=== PATIENT | male | born 1940 | race Caucasian/White ===

== ENCOUNTER 2020-11-28 17:00 | Inpatient (IN) ==
[2020-11-28] MEDS ORDERED: Norepinephrine 16MCG/ML IVPRE 4,000 MCG/250 ML BAG IV ONE (17:06)
[2020-11-28] MEDS ORDERED: Heparin - STEMI 5,000 UNITS/ML 1 ml VIAL IV ONE ×2 (17:08→17:14)
[2020-11-28] MEDS ORDERED: Heparin 1,000 UNIT/ML 10 ml (10,000 UNITS) CATHLAB/DIALYSIS ONE (17:09)
[2020-11-28] MEDS ORDERED: Heparin 2 UNITS/ML 1000 mls 2,000 ML IV ONE (17:09)
[2020-11-28] MEDS ORDERED: nitroGLYCERIN DRIP 25,000 MCG/250 ML BTL ONE (17:09)
[2020-11-28] MEDS ORDERED: Lidocaine 1% VIAL 10 MG/ML VIAL ONE (17:09)
[2020-11-28] MEDS ORDERED: VERAPAMIL 2.5 MG/ML 2 ML VIAL ** 5 mg/2 ml ONE (17:09)
[2020-11-28] MEDS ORDERED: Midazolam 5 mg/5 ml VIAL 1 mg/ml 5 ml VIAL (5 mg) ONE (17:10)
[2020-11-28] MEDS ORDERED: Iohexol 350 (CONTRAST) 200 ML MDV IV ONE ×2 (17:10→17:45)
[2020-11-28] MEDS ORDERED: fentaNYL 100 mcg/2 ml 50 MCG/ML VIAL ONE (17:10)
[2020-11-28] MEDS ORDERED: Atropine 1 MG/ML INJ 1 ML VIAL IV PUSH ONE ×2 (17:14→17:15)
[2020-11-28 17:16] LABS: Hematocrit 45 % (42-52); Hemoglobin 15.7 g/dL (14.0-18.0); Mean Corpuscular HGB Conc 35 g/dL (31-36); Mean Corpuscular Hemoglobin 30 pg (27-31); Mean Corpuscular Volume 86 fL (80-94); Platelet Count 266 10^3/uL (150-450); Red Blood Count 5.23 10^6 /uL (4.18-5.48); Red Cell Distribution Width 14 % (10-15); White Blood Count 9.8 10^3/uL (3.5-10.8)
[2020-11-28 17:21] LABS: INR 1.12 (0.86-1.15)
[2020-11-28 17:36] LABS: Albumin 4.1 g/dL (3.2-5.2); Albumin/Globulin Ratio 1.6 (1-3); Calcium 9.5 mg/dL (8.6-10.3); Globulin 2.6 g/dL (2-4); Magnesium 2.1 mg/dL (1.9-2.7); Potassium 3.5 mmol/L (3.5-5.0); Total Bilirubin 0.8 mg/dL (0.2-1.0); Total Protein 6.7 g/dL (6.4-8.9)
[2020-11-28 17:37] LABS: Troponin I 0.01 ng/mL (<0.03)
[2020-11-28 17:40] LABS: Rapid COVID-19 Molecular Undetected (Undetected)
[2020-11-28] MEDS ORDERED: Bivalirudin 250 MG VIAL ONE (18:00)
[2020-11-28] MEDS ORDERED: Ondansetron 4 mg VIAL 2 MG/ML 2 ml VIAL IV PRN (21:08)
[2020-11-28 21:12] LABS: Creatine Kinase 1849 U/L (10-223)
[2020-11-28 21:14] LABS: CKMB ng/mL 216.8 ng/mL (0.6-6.3)
[2020-11-28 21:19] LABS: Troponin I 54.99 ng/mL (<0.03)
[2020-11-29] MEDS: KCL 20 MEQ/100 ML IVPREMIX 20 MEQ/100 ML BAG IV SCH ×2 (02:14→04:15)
[2020-11-29] MEDS ORDERED: Potassium Chloride LIQUID 20 MEQ/15 ML LIQUID PO ONE (03:21)
[2020-11-29 03:29] LABS: Creatine Kinase 1708 U/L (10-223)
[2020-11-29 03:36] LABS: CKMB ng/mL 209.6 ng/mL (0.6-6.3)
[2020-11-29 03:43] LABS: Troponin I > 79.00 ng/mL (<0.03)
[2020-11-29 06:54] LABS: ABS Basophils 0.1 10^3/ul (0-0.2); ABS Monocytes 0.7 10^3/ul (0-0.8); ABS Neutrophils 10.1 10^3/ul (1.5-7.7); Eosinophil % 0.1 %; Hematocrit 42 % (42-52); Hemoglobin 14.6 g/dL (14.0-18.0); Lymphocyte % 8.3 %; Mean Corpuscular HGB Conc 35 g/dL (31-36); Mean Corpuscular Hemoglobin 30 pg (27-31); Mean Corpuscular Volume 86 fL (80-94); Mean Platelet Volume 8.3 fL (7.4-10.4); Platelet Count 218 10^3/uL (150-450); Red Cell Distribution Width 14 % (10-15); White Blood Count 11.9 10^3/uL (3.5-10.8)
[2020-11-29 07:11] LABS: ALT 104 U/L (7-52); AST 206 U/L (13-39); Albumin 3.8 g/dL (3.2-5.2); Albumin/Globulin Ratio 1.6 (1-3); Alkaline Phosphatase 89 U/L (35-149); Anion Gap 7 mmol/L (2-11); Blood Urea Nitrogen 19 mg/dL (6-24); CO2 Carbon Dioxide 24 mmol/L (22-32); Calcium 8.8 mg/dL (8.6-10.3); Chloride 108 mmol/L (101-111); Cholesterol 145 mg/dL; EGFR African American 70.4 (>60); EGFR Non-African American 58.1 (>60); Globulin 2.4 g/dL (2-4); Glucose 127 mg/dL (70-100); HDL Cholesterol 33.7 mg/dL; LDL Cholesterol 88 mg/dL; Sodium 139 mmol/L (135-145); Total Protein 6.2 g/dL (6.4-8.9); Triglycerides 116 mg/dL
[2020-11-29 09:16] LABS: Creatine Kinase 1394 U/L (10-223)
[2020-11-29 09:17] LABS: CKMB ng/mL 175.1 ng/mL (0.6-6.3)
[2020-11-29 09:30] LABS: Troponin I > 79.00 ng/mL (<0.03)
[2020-11-29] MEDS ORDERED: Enoxaparin 40 MG/0.4 ML SYR SUBCUT SCH (10:00)
[2020-11-30 04:44] LABS: ABS Basophils 0.1 10^3/ul (0-0.2); ABS Eosinophils 0.1 10^3/ul (0-0.6); ABS Lymphocytes 1.2 10^3/ul (1.0-4.8); ABS Monocytes 0.9 10^3/ul (0-0.8); ABS Neutrophils 8.2 10^3/ul (1.5-7.7); Hematocrit 43 % (42-52); Hemoglobin 14.6 g/dL (14.0-18.0); Lymphocyte % 11.7 %; Mean Corpuscular HGB Conc 34 g/dL (31-36); Mean Corpuscular Hemoglobin 30 pg (27-31); Mean Corpuscular Volume 88 fL (80-94); Mean Platelet Volume 8.1 fL (7.4-10.4); Platelet Count 178 10^3/uL (150-450); Red Blood Count 4.88 10^6 /uL (4.18-5.48); Red Cell Distribution Width 14 % (10-15); White Blood Count 10.5 10^3/uL (3.5-10.8)
[2020-11-30 04:52] LABS: INR 1.4 (0.86-1.15)
[2020-11-30 05:01] LABS: Albumin 3.6 g/dL (3.2-5.2); Albumin/Globulin Ratio 1.5 (1-3); Calcium 8.6 mg/dL (8.6-10.3); EGFR African American 73.9 (>60); EGFR Non-African American 61.1 (>60); Globulin 2.4 g/dL (2-4); Magnesium 1.9 mg/dL (1.9-2.7); Phosphorus 2.3 mg/dL (2.5-5.0); Total Bilirubin 1.1 mg/dL (0.2-1.0)
[2020-11-30] MEDS ORDERED: Magnesium Sulfate 2 gm BAG 2 GM/50 ML BAG IVPB ONE (07:29)
[2020-11-30] MEDS ORDERED: Potassium Phosphate IV 10 MMOLE in NS 0.9% 250 ml 250 ML IVPB ONE (07:34)
[2020-11-30] MEDS ORDERED: Midazolam 5 mg/5 ml VIAL 1 mg/ml 5 ml VIAL (5 mg) ONE (08:29)
[2020-11-30] MEDS ORDERED: Naloxone 0.4 mg VIAL 0.4 mg/ml 1 ml VIAL ONE (08:30)
[2020-11-30] MEDS ORDERED: Flumazenil 0.5 mg/5 ml 0.1 MG/ML 5 ml VIAL ONE (08:30)
[2020-11-30] MEDS ORDERED: fentaNYL 100 mcg/2 ml 50 MCG/ML VIAL ONE (08:30)
[2020-12-01 05:41] VITALS: BP 114/65
== END 2020-12-01 12:30 | disposition home or self-care (01) | DRG 247 ==
LOC: ED 17:00 → CHICATH 18:42 → ICU 19:07 → MEDTELE 11-30 19:42
PROVIDERS: ADMIT Internal Medicine Cardiovascular Disease; ATTEND Internal Medicine